=== PATIENT | female | born 2000 | race Caucasian/White ===

== ENCOUNTER 2021-10-09 01:32 | Emergency (ER) | payer OTHER, BC ==
[~2021-10-09] VITALS: Ht 163 cm; Wt 61.2 kg
[2021-10-09 01:50] LABS: HEMATOCRIT 35 % (35-52); HEMOGLOBIN 10.2 g/dL (11.5-16.0); MEAN CORPUSCULAR HEMOGLOBIN 20 pg (25-34); MEAN CORPUSCULAR HGB CONC 29 g/dL (32-36); MEAN CORPUSCULAR VOLUME 69 fL (80-99); MEAN PLATELET VOLUME 8.9 fL (9.0-12.2); PLATELET COUNT 355 10^3/uL (130-400); WHITE BLOOD COUNT 10.7 10^3/uL (4.3-11.0)
[2021-10-09 01:56] LABS: ALBUMIN 4.2 GM/DL (3.2-4.5); POTASSIUM 2.8 MMOL/L (3.6-5.0)
[2021-10-09 01:57] LABS: CALCIUM 8.9 MG/DL (8.5-10.1)
[2021-10-09 01:58] LABS: TOTAL PROTEIN 7.1 GM/DL (6.4-8.2)
[2021-10-09 02:00] LABS: BILIRUBIN,TOTAL 0.4 MG/DL (0.1-1.0)
[2021-10-09] MEDS ORDERED: TETANUS,DIPTH,PERTUSS P/F (BOOSTRIX) 0.5 ML VIAL IM ONE (02:00)
[2021-10-09 02:02] LABS: CREATININE SERUM 0.85 MG/DL (0.60-1.30)
[2021-10-09 02:03] LABS: BILIRUBIN,DIRECT 0.2 MG/DL (0.0-0.3); BILIRUBIN,INDIRECT 0.2 MG/DL
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
[2021-10-09] MEDS ORDERED: ceFAZolin INJECTION 1,000 MG VIAL IV ONE (02:30)
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
[2021-10-09] MEDS ORDERED: fentaNYL INJ 100 MCG/2 ML AMP IVP STA (02:59)
[2021-10-09 03:12] LABS: BILIRUBIN,URINE NEGATIVE (NEGATIVE); CLARITY,URINE CLEAR; COLOR,URINE YELLOW; GLUCOSE, URINE (UA) NEGATIVE (NEGATIVE); KETONES,URINE NEGATIVE (NEGATIVE); LEUKOCYTE ESTERASE ,URINE NEGATIVE (NEGATIVE); NITRITE,URINE NEGATIVE (NEGATIVE); PROTEIN,URINE NEGATIVE (NEGATIVE)
[2021-10-09] MEDS ORDERED: NS 100 ML (IVPB) BAG IV ONE (03:15)
[2021-10-09] MEDS ORDERED: CATHETER FLUSH 10 ML SYR IV PRN (03:15)
[2021-10-09] MEDS ORDERED: IOHEXOL 350 MG/ML 100 ML (OMNIPAQUE 350) VIAL IV ONE (03:15)
[2021-10-09 03:18] LABS: BACTERIA,URINE TRACE /HPF; SQUAMOUS EPITHELIAL CELL,UR 0-2 /HPF
[2021-10-09] MEDS ORDERED: LACTATED RINGERS 1,000 ML IV ONE (03:30)
[2021-10-09 03:36] LABS: AMPHETAMINE SCREEN, URINE NEGATIVE (NEGATIVE); BARBITURATE SCREEN URINE NEGATIVE (NEGATIVE); BENZODIAZEPINES SCREEN URINE NEGATIVE (NEGATIVE); CANNABINOID SCREEN, URINE NEGATIVE (NEGATIVE); COCAINE SCREEN URINE NEGATIVE (NEGATIVE); METHADONE STAT NEGATIVE (NEGATIVE); METHAMPHETAMINE SCREEN URINE S NEGATIVE (NEGATIVE); OPIATE SCREEN URINE NEGATIVE (NEGATIVE); OXYCODONE STAT NEGATIVE (NEGATIVE); PROPOXYPHENE STAT NEGATIVE (NEGATIVE); TRICYCLIC ANTIDEPRESSANTS SCRE NEGATIVE (NEGATIVE)
[2021-10-09 03:48] VITALS: BP 135/91
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
--- NOTE | 2021-10-09 06:20 | Diagnostic Imaging Report ---
ANKLE, RIGHT, 3 VIEWS COMPARISON: Right foot radiographs performed concurrently INDICATION: Right ankle injury TECHNIQUE: Non-weight bearing AP, oblique, and lateral views. FINDINGS: No fracture or traumatic malalignment. No osteochondral lesion of the talar dome. No soft tissue swelling. Achilles shadow is normal. IMPRESSION: 1. No acute fracture or traumatic malalignment. Dictated by: Dictated on workstation # [id number]
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
--- NOTE | 2021-10-09 06:20 | Diagnostic Imaging Report ---
FOOT, RIGHT, 3 VIEW INDICATION: Right foot injury COMPARISON: Right ankle radiographs performed concurrently. TECHNIQUE: 3 nonweightbearing views of right foot. FINDINGS: No acute fracture. Alignment is normal on nonweightbearing imaging. No radiopaque foreign body or soft tissue gas. Joint spaces are well-maintained. Achilles shadow is normal. IMPRESSION: No acute fracture within the right foot. Dictated by: Dictated on workstation # [id number]
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
== END 2021-10-09 03:55 | disposition short-term general hospital (02) ==
LOC: EDUNIT# 01:32 → ER 01:33
DX: S02.609B Fracture of mandible, unspecified, initial encounter for open fracture (principal); S52.571A Other intraarticular fracture of lower end of right radius, initial encounter for closed fracture; S52.611A Displaced fracture of right ulna styloid process, initial encounter for closed fracture; S80.812A Abrasion, left lower leg, initial encounter; S09.90XA Unspecified injury of head, initial encounter; M25.571 Pain in right ankle and joints of right foot; M25.551 Pain in right hip; F10.929 Alcohol use, unspecified with intoxication, unspecified; F17.290 Nicotine dependence, other tobacco product, uncomplicated; Y90.6 Blood alcohol level of 120-199 mg/100 ml; Z32.02 Encounter for pregnancy test, result negative; Z23 Encounter for immunization; V89.2XXA Person injured in unspecified motor-vehicle accident, traffic, initial encounter; Y92.410 Unspecified street and highway as the place of occurrence of the external cause
CPT/HCPCS: 70450; 70486; 71045; 71260; 72125; 72128; 72131; 72170; 73090; 73130; 73552; 73610; 73630; 74177; 80048; 80076; 80306; 81000; 84703 ×2; 85027; 93041; 94760; 99284; G0480; 36415; 80320; 90715; 93005

== ENCOUNTER → 2021-12-14 | Outpatient (RCR) | payer OTHER, BC | END | disposition home or self-care (01) | PROVIDERS: ATTEND Orthopaedic Surgery Orthopaedic Trauma | DX: S52.509D Unspecified fracture of the lower end of unspecified radius, subsequent encounter for closed fracture with routine healing (principal); Z98.890 Other specified postprocedural states ==

== ENCOUNTER 2022-01-12 11:14 | Outpatient (RCR) | payer OTHER, BC | END 2022-01-13 | disposition home or self-care (01) | PROVIDERS: ATTEND Orthopaedic Surgery Orthopaedic Trauma | DX: S52.509D Unspecified fracture of the lower end of unspecified radius, subsequent encounter for closed fracture with routine healing (principal); Z98.890 Other specified postprocedural states ==

== ENCOUNTER 2022-01-24 12:54 | Outpatient (RCR) | payer OTHER, BC | END 2022-01-24 14:15 | disposition home or self-care (01) | PROVIDERS: ATTEND Orthopaedic Surgery Orthopaedic Trauma | DX: S52.509D Unspecified fracture of the lower end of unspecified radius, subsequent encounter for closed fracture with routine healing (principal); Z98.890 Other specified postprocedural states; V89.2XXD Person injured in unspecified motor-vehicle accident, traffic, subsequent encounter ==